=== PATIENT | female | born 1975 | race African-American/Black ===

== ENCOUNTER 2022-05-16 20:47 | Emergency (ER) | payer BC ==
[2022-05-16] MEDS ORDERED: HYDROcodone/Acetaminophen 5/325 mg Tablet ONE (22:07)
[2022-05-16] MEDS ORDERED: Ketorolac Tromethamine 30 MG/ML VIAL ONE (22:07)
== END 2022-05-16 22:27 | disposition home or self-care (01) ==
LOC: CSHERS 20:47
DX: K03.81 Cracked tooth (principal); E78.00 Pure hypercholesterolemia, unspecified; I10 Essential (primary) hypertension; E11.9 Type 2 diabetes mellitus without complications; Z79.4 Long term (current) use of insulin; Z79.899 Other long term (current) drug therapy
CPT/HCPCS: 96372; 99282; J1885

== ENCOUNTER 2025-04-26 16:47 | Emergency (ER) | payer BC ==
[2025-04-26 17:34] LABS: #Basophils 0.04 10x3/uL (0.0-0.2); #Eosinophils 0.25 10x3/uL (0.0-0.5); #Monocytes 0.68 10x3/uL (0.0-1.1); #Neutrophils 7.96 10x3/uL (1.5-8.4); %Basophils 0.4 % (0.0-2.0); %Eosinophils 2.2 % (0.0-6.0); %Lymphocytes 19.9 % (18.0-47.0); %Monocytes 6.1 % (0.0-10.0); %Neutrophils 70.8 % (40.0-75.0); Hematocrit 28.4 % (34.9-44.5); Hemoglobin 8.8 g/dL (12.0-15.5); Mean Corpuscular Hemoglobin 25.8 pg (27.0-33.0); Mean Corpuscular Volume 83.3 fL (81.6-98.3); Platelet Count 379 10x3/uL (150-450); Red Blood Cell (RBC) Count 3.41 10x6/uL (3.90-5.03); White Blood Cell (WBC) Count 11.23 10x3/uL (3.5-10.5)
[2025-04-26] MEDS ORDERED: Ondansetron PF 4 MG/2 ML Vial ONE (17:43)
[2025-04-26 19:31] LABS: ALT (SGPT) 9 U/L (Less than 34); AST (SGOT) 12 U/L (11-34); Albumin 2.8 g/dL (3.1-4.5); Alkaline Phosphatase 101 U/L (40-110); Anion Gap 16 mmol/L (10-20); BUN (Urea Nitrogen) 41 mg/dL (7.0-18.7); Bilirubin, Total 0.2 mg/dL (0.3-1.2); Calc. Creatinine Clearance 0 mL/min (70-130); Calcium 8.0 mg/dL (7.8-10.44); Carbon Dioxide 17 mmol/L (22-29); Chloride 109 mmol/L (98-107); Globulin 4.5 g/dL (2.4-3.5); Glucose 267 mg/dL (70-105); Lipase 27 U/L (8-78); Potassium 5.3 mmol/L (3.5-5.1); Sodium 137 mmol/L (136-145); Troponin I 0.014 ng/mL (< 0.028)
== END 2025-04-26 20:21 | disposition home or self-care (01) ==
LOC: CSHERS 16:47
DX: K80.20 Calculus of gallbladder without cholecystitis without obstruction (principal); I12.9 Hypertensive chronic kidney disease with stage 1 through stage 4 chronic kidney disease, or unspecified chronic kidney disease; E11.22 Type 2 diabetes mellitus with diabetic chronic kidney disease; N18.9 Chronic kidney disease, unspecified; R11.2 Nausea with vomiting, unspecified; B20 Human immunodeficiency virus [HIV] disease
CPT/HCPCS: 36415; 36416; 76705; 80053; 83690; 84484; 85025; 93005; 96374; 96375; J2270; J2405

== ENCOUNTER 2025-04-29 03:23 | Emergency (ER) | payer BC ==
[2025-04-29 03:46] LABS: #Basophils 0.04 10x3/uL (0.0-0.2); #Eosinophils Less than 0.03 10x3/uL (0.0-0.5); #Monocytes 0.25 10x3/uL (0.0-1.1); #Neutrophils 11.82 10x3/uL (1.5-8.4); %Basophils 0.3 % (0.0-2.0); %Eosinophils 0.1 % (0.0-6.0); %Lymphocytes 8.3 % (18.0-47.0); %Monocytes 1.9 % (0.0-10.0); %Neutrophils 88.1 % (40.0-75.0); Hematocrit 27.3 % (34.9-44.5); Hemoglobin 8.4 g/dL (12.0-15.5); Mean Corpuscular Hemoglobin 25.6 pg (27.0-33.0); Mean Corpuscular Volume 83.2 fL (81.6-98.3); Platelet Count 339 10x3/uL (150-450); Red Blood Cell (RBC) Count 3.28 10x6/uL (3.90-5.03); White Blood Cell (WBC) Count 13.42 10x3/uL (3.5-10.5)
[2025-04-29] MEDS ORDERED: Ondansetron PF 4 MG/2 ML Vial ONE ×2 (03:47→08:07)
[2025-04-29 04:04] LABS: ALT (SGPT) 10 U/L (Less than 34); AST (SGOT) 13 U/L (11-34); Albumin 3.0 g/dL (3.1-4.5); Alkaline Phosphatase 110 U/L (40-110); Anion Gap 17 mmol/L (10-20); BUN (Urea Nitrogen) 54 mg/dL (7.0-18.7); Bilirubin, Total 0.2 mg/dL (0.3-1.2); Calc. Creatinine Clearance 0 mL/min (70-130); Calcium 7.9 mg/dL (7.8-10.44); Carbon Dioxide 16 mmol/L (22-29); Chloride 106 mmol/L (98-107); Globulin 4.9 g/dL (2.4-3.5); Lipase 25 U/L (8-78); Potassium 5.4 mmol/L (3.5-5.1); Sodium 134 mmol/L (136-145)
[2025-04-29 04:05] LABS: Glucose 455 mg/dL (70-105)
[2025-04-29 04:09] LABS: Troponin I 0.014 ng/mL (< 0.028)
[2025-04-29 04:49] LABS: Actual Bicarbonate (HCO3v) 16.8 mEq/L (22-28); Analyzer IN Cardio CS ER; Base Excess -9.1 mEq/L (-2 - +2); Calcium, Ionized (venous) 1.01 mmol/L (1.16-1.32); Chloride (VBG) 108 mmol/L (98-106); Critical Notified By: CP.PH; Hematocrit-VBG 26 % (36.0-47.0); Hemoglobin (Hb) 9.0 g/dL (11.7-16.0); Potassium (VBG) 5.19 mmol/L (3.70-5.30); Puncture Site Other Site; RapidComm Collect By CBN; Sodium 138 mmol/L (133-146)
[2025-04-29] MEDS ORDERED: INSULIN REGULAR IN 0.9 % NACL 100 ML ONE (05:08)
[2025-04-29 05:09] LABS: BHCG - Serum Negative (NEGATIVE); Pregs Control Background? CLEAR/WHITE (CLR/WHITE); Pregs Control Bar Appear? YES (CONTROL BAR)
[2025-04-29 05:15] LABS: Magnesium 1.7 mg/dL (1.6-2.6)
[2025-04-29] MEDS ORDERED: niCARdipine 25 MG/10 ML SDV ONE ×2 (05:18→08:12)
[2025-04-29 06:23] LABS: Glucose, Urine (Dipstick) >=1000 mg/dL (Negative); Leukocyte Negative (Negative); Protein, Urine (Dipstick) 500 mg/dl (Neg-Trace); Specific Gravity, Urine 1.005 (1.005-1.030)
[2025-04-29 06:30] LABS: Bacteria/HPF None Seen HPF (None Seen); CAUTI Indications for Culture Pelvic or flank pain; RBC/HPF 0-3 HPF (0-3); Urine Culture Reflex No No; WBC/HPF None Seen HPF (0-3)
[2025-04-29 08:53] LABS: Anion Gap 18 mmol/L (10-20); BUN (Urea Nitrogen) 52 mg/dL (7.0-18.7); Calc. Creatinine Clearance 0 mL/min (70-130); Calcium 8.3 mg/dL (7.8-10.44); Carbon Dioxide 15 mmol/L (22-29); Chloride 110 mmol/L (98-107); Glucose 324 mg/dL (70-105); Potassium 4.9 mmol/L (3.5-5.1); Sodium 138 mmol/L (136-145)
[2025-04-29] MEDS ORDERED: NS 0.9% w/ 20 MEQ KCL 1,000 ML ONE (09:10)
== END 2025-04-29 10:13 | disposition short-term general hospital (02) ==
LOC: CSHERS 03:23
DX: N17.9 Acute kidney failure, unspecified (principal); E11.10 Type 2 diabetes mellitus with ketoacidosis without coma; E87.5 Hyperkalemia; I16.1 Hypertensive emergency; I10 Essential (primary) hypertension; Z79.4 Long term (current) use of insulin; Z79.899 Other long term (current) drug therapy
CPT/HCPCS: 36415; 36416; 76705; 80053; 81001; 82010; 82805; 83605; 83690; 83735; 83880; 84100; 84484; 84703; 85025; 87040; 93005; 96372; 96374; 96375; 96376; J1815; J2270; J2405; J3480

== ENCOUNTER 2025-06-23 22:16 | Emergency (ER) | payer BC ==
[2025-06-23 23:53] LABS: #Basophils 0.03 10x3/uL (0.0-0.2); #Eosinophils Less than 0.03 10x3/uL (0.0-0.5); #Monocytes 0.19 10x3/uL (0.0-1.1); #Neutrophils 12.10 10x3/uL (1.5-8.4); %Basophils 0.2 % (0.0-2.0); %Eosinophils 0.0 % (0.0-6.0); %Lymphocytes 7.5 % (18.0-47.0); %Monocytes 1.4 % (0.0-10.0); %Neutrophils 90.2 % (40.0-75.0); Hematocrit 34.5 % (34.9-44.5); Hemoglobin 10.6 g/dL (12.0-15.5); Mean Corpuscular Hemoglobin 26.0 pg (27.0-33.0); Mean Corpuscular Volume 84.6 fL (81.6-98.3); Platelet Count 304 10x3/uL (150-450); Red Blood Cell (RBC) Count 4.08 10x6/uL (3.90-5.03); White Blood Cell (WBC) Count 13.42 10x3/uL (3.5-10.5)
[2025-06-24 00:12] LABS: ALT (SGPT) 7 U/L (Less than 34); AST (SGOT) 15 U/L (11-34); Albumin 3.2 g/dL (3.1-4.5); Alkaline Phosphatase 106 U/L (40-110); Anion Gap 21 mmol/L (10-20); BUN (Urea Nitrogen) 28 mg/dL (7.0-18.7); Bilirubin, Total 0.3 mg/dL (0.3-1.2); Calc. Creatinine Clearance 0 mL/min (70-130); Calcium 8.6 mg/dL (7.8-10.44); Carbon Dioxide 23 mmol/L (22-29); Chloride 97 mmol/L (98-107); Globulin 4.5 g/dL (2.4-3.5); Magnesium 2.0 mg/dL (1.6-2.6); Potassium 4.1 mmol/L (3.5-5.1); Sodium 137 mmol/L (136-145)
[2025-06-24 00:16] LABS: Glucose 477 mg/dL (70-105)
[2025-06-24 00:18] LABS: Troponin I Less than 0.010 ng/mL (< 0.028)
[2025-06-24] MEDS ORDERED: Ondansetron PF 4 MG/2 ML Vial ONE (00:30)
[2025-06-24 03:10] LABS: Actual Bicarbonate (HCO3v) 25.4 mEq/L (22-28); Analyzer IN Cardio CS ER; Base Excess 1.4 mEq/L (-2 - +2); Calcium, Ionized (venous) 0.98 mmol/L (1.16-1.32); Chloride (VBG) 97 mmol/L (98-106); Potassium (VBG) 3.97 mmol/L (3.70-5.30); Puncture Site Other Site; RapidComm Collect By Lab; Sodium 138 mmol/L (133-146)
== END 2025-06-24 02:18 | disposition home or self-care (01) ==
LOC: CSHERS 22:16
DX: R11.2 Nausea with vomiting, unspecified (principal); E11.65 Type 2 diabetes mellitus with hyperglycemia; E11.22 Type 2 diabetes mellitus with diabetic chronic kidney disease; I12.0 Hypertensive chronic kidney disease with stage 5 chronic kidney disease or end stage renal disease; N18.6 End stage renal disease
CPT/HCPCS: 36415; 36416; 71045; 80053; 82010; 82805; 83735; 84100; 84484; 85025; 93005; 96374; 96375; J1815; J2405

== ENCOUNTER 2025-07-25 21:26 | Emergency (ER) | payer BC ==
[2025-07-25] MEDS ORDERED: hydrALAZINE 10 MG TAB PO SCH (23:00)
[2025-07-25 23:34] LABS: Glucose, Urine (Dipstick) 100 mg/dL (Negative); Leukocyte Negative (Negative); Protein, Urine (Dipstick) 500 mg/dl (Neg-Trace); Specific Gravity, Urine 1.020 (1.005-1.030)
[2025-07-25 23:41] LABS: Bacteria/HPF 1+ HPF (None Seen); CAUTI Indications for Culture Alt mental st,lethar; Cocaine Metabolite Screen Negative (Negative); RBC/HPF 0-3 HPF (0-3); THC/Cannabinoid Screen Negative (Negative); Tricyclic Screen Negative (Negative)
[2025-07-25 23:42] LABS: Urine Culture Reflex No No
[2025-07-25 23:54] LABS: #Basophils 0.03 10x3/uL (0.0-0.2); #Eosinophils 0.31 10x3/uL (0.0-0.5); #Monocytes 0.89 10x3/uL (0.0-1.1); #Neutrophils 6.94 10x3/uL (1.5-8.4); %Basophils 0.3 % (0.0-2.0); %Eosinophils 3.0 % (0.0-6.0); %Lymphocytes 20.6 % (18.0-47.0); %Monocytes 8.6 % (0.0-10.0); %Neutrophils 66.9 % (40.0-75.0); Hematocrit 30.7 % (34.9-44.5); Hemoglobin 9.4 g/dL (12.0-15.5); Mean Corpuscular Hemoglobin 25.8 pg (27.0-33.0); Mean Corpuscular Volume 84.3 fL (81.6-98.3); Platelet Count 255 10x3/uL (150-450); Red Blood Cell (RBC) Count 3.64 10x6/uL (3.90-5.03); White Blood Cell (WBC) Count 10.37 10x3/uL (3.5-10.5)
[2025-07-26] LABS: BHCG - Serum Negative (NEGATIVE); Pregs Control Background? CLEAR/WHITE (CLR/WHITE); Pregs Control Bar Appear? YES (CONTROL BAR)
[2025-07-26 00:02] LABS: ALT (SGPT) Less than 7 U/L (Less than 34); AST (SGOT) 11 U/L (11-34); Acetaminophen Less than 10 mcg/mL (Less than 10); Albumin 3.2 g/dL (3.1-4.5); Alkaline Phosphatase 84 U/L (40-110); Anion Gap 19 mmol/L (10-20); BUN (Urea Nitrogen) 45 mg/dL (7.0-18.7); Bilirubin, Total 0.2 mg/dL (0.3-1.2); CK (CPK) 159 U/L (29-168); Calc. Creatinine Clearance 0 mL/min (70-130); Calcium 9.0 mg/dL (7.8-10.44); Carbon Dioxide 25 mmol/L (22-29); Chloride 97 mmol/L (98-107); Globulin 4.8 g/dL (2.4-3.5); Glucose 263 mg/dL (70-105); Potassium 3.9 mmol/L (3.5-5.1); Salicylate Less than 8.0 mg/dL (Less than 8.0); Sodium 137 mmol/L (136-145)
== END 2025-07-26 06:20 | disposition home or self-care (01) ==
LOC: CSHERS 21:26
DX: R56.9 Unspecified convulsions (principal); R93.0 Abnormal findings on diagnostic imaging of skull and head, not elsewhere classified; I12.9 Hypertensive chronic kidney disease with stage 1 through stage 4 chronic kidney disease, or unspecified chronic kidney disease; E11.22 Type 2 diabetes mellitus with diabetic chronic kidney disease; N18.9 Chronic kidney disease, unspecified; B20 Human immunodeficiency virus [HIV] disease; Z79.4 Long term (current) use of insulin; Z79.899 Other long term (current) drug therapy
CPT/HCPCS: 36415; 70450; 71045; 80053; 80306; 80307; 81001; 82550; 83605; 84146; 84703; 85025; 93005